=== PATIENT | female | born 1945 | race Caucasian/White ===

== ENCOUNTER 2019-02-09 07:34 | Outpatient (CLI) | END 2019-02-09 07:35 | disposition home or self-care (01) | LOC: NONPT 07:34 | PROVIDERS: ATTEND General Practice | DX: Z51.81 Encounter for therapeutic drug level monitoring (principal); Z79.899 Other long term (current) drug therapy | CPT/HCPCS: 80053; 80061; 82248; 83036; 84443; 85025 ==